=== PATIENT | female | born 1965 | race Caucasian/White ===

== ENCOUNTER 2024-10-15 06:56 | Emergency (ER) | payer OTHER, SELFPAY ==
[2024-10-15 07:12] VITALS: BP 148/82; PULSE 114; RESP 19; TEMP 36.6; O2SAT 97; BMI 29.5
--- OUTSIDE RECORDS SUMMARY | 2024-10-15 07:31 | XMS_ITS | Encounter Summary ---
Author Organization [facility] Address [address] [place] [address] Care Team Providers Care Sheep Or Calf Grader Name Role Phone Adrian Orr MD Primary Care Provider [phone] Reason for Visit * Reason Comments Other Was exposed to Covid and wants a test Encounter Details Date Type Department Care Team ([facility] Contact Info) Description 09/20/2024 1:30 PM EST Office Visit [facility] [place] [address] [place] [address] Gregorio Lakhani MD [address] [place] [address] Caterina Bro, BLEMISH REMOVER [address] [place] [address] COVID-19 (Primary Dx); Exposure to COVID-19 virus; Acute cough Social History Tobacco Use Types Packs/Day Years Used Date Smoking Tobacco: Some Days Cigarettes Smokeless Tobacco: Never Sex and Gender Information Value Date Recorded Sex Assigned at Female 06/23/2024 7:56 AM EDT Gender Identity Female 06/23/2024 7:56 AM EDT Sexual Orientation Not on file documented as of this encounter Last Filed Vital Signs Vital Sign Reading Time Taken Comments Blood Pressure 129/83 09/20/2024 1:18 PM EST Pulse 80 09/20/2024 1:18 PM EST Temperature 37.2 ??C (99 ??F) 09/20/2024 1:18 PM EST Respiratory Rate - - Oxygen Saturation 95% 09/20/2024 1:18 PM EST Inhaled Oxygen Concentration - - Weight 81.6 kg (180 lb) 09/20/2024 1:18 PM EST Height 162.6 cm (5' 4 ) 09/20/2024 1:18 PM EST Body Mass Index 30.9 09/20/2024 1:18 PM EST documented in this encounter Progress Notes * Caterina Bro, BLEMISH REMOVER - 09/20/2024 1:38 PM EST Assessment & Plan & Data Synthesis Sheryl Doll was seen today for other. Diagnoses and all orders for this visit: COVID-19 - benzonatate (TESSALON) 100 MG capsule; Take 2 capsules (200 mg total) by mouth 3 (three) times a day as needed for cough. Exposure to COVID-19 virus - POCT Rapid COVID-19 Antigen (FDA EUA) Acute cough - benzonatate (TESSALON) 100 MG capsule; Take 2 capsules (200 mg total) by mouth 3 (three) times a day as needed for cough. Medical Decision Making: Patient presents with COVID. POC COVID-positive in clinic today. We discussed the pathophysiology and how can take anywhere between 5-8 days for symptoms to resolve or show signs of improvement. The nonuse of antibiotics was discussed. Discussed contagiousness, contagious until fever free for 24 hours without fevers and medication. Low-grade fever here in clinic today. Benzonatate for symptomaticrelief. Allergies reviewed. Side effects discussed. Any drug interactions discussed. We discussed heavy rest including quarantining oneself to prevent spread, heavy fluids and to go to ED immediatelywith any difficulty getting out of bed, worsening fever or difficulty breathing. I considered mastoiditis, pneumonia, GABHS, sinusitis, WELFARE PROJECT MANAGER, retropharyngeal abscess, meningitis, otitis media, orbital cellultis and other bacterial infxs but the hx, exam & data did not support the diagnoses. The pt/family was advised that some diseases present atypically and the patient was given explicit discharge instructions. Communication barriers and lifestyle preferences were addressed with the patient. The care plan including medications and self-management goals were reviewed to the best of the patient's ability. Allquestions and concerns were answered. Patient and/or family verbalized understanding of the plan ofcare. Subjective History of present illness: Sheryl Elizalde is a 59 y.o. female Chief Complaint: Sore throat, cough Duration: today Severity: moderate has tried OTC medications. Presents for sore throat and cough since today. Reports COVID exposure 3 days ago. Denies any history of asthma, COPD. Current tobacco smoker. No OTC meds. Denies any other systemic symptoms. Denies f/c, ear pain, rhinorrhea, cp, sob, dyspnea, wheezing, N/V/D, fatigue, FLORES, change in vision, abd px,loss of taste or smell, or sinus pain. Denies any known exposure to Strep/Flu. Denies any recent illness or ABX use. I have reviewed the patients medications, allergies, past medical history, social history and family history as documented. Past Medical History: Diagnosis Date ??? Asthma ??? GERD (gastroesophageal reflux disease) ??? Hypertension ??? PTSD (post-traumatic stress disorder) ??? Type 2 diabetes mellitus (HCC) History reviewed. No pertinent surgical history. Social History Tobacco Use ??? Smoking status: Some Days Types: Cigarettes ??? Smokeless tobacco: Never Vaping Use ??? Vaping status: Never Used Substance Use Topics ??? Drug use: Never History reviewed. No pertinent family history. Review of Systems: Constitutional: has had no subjective fever, chills, malaise ENT: has had sore throat, no ear pain or sinus congestion Respiratory: has had cough, no shortness of breath Gastrointestinal: Denies abdominal pain. Denies nausea or vomiting. Neurologic: has had headache Musculoskeletal: has had muscle aches. Objective Vitals: 09/20/24 1318 BP: 129/83 Pulse: 80 Temp: 99 ??F (37.2 ??C) SpO2: 95% Weight: 81.6 kg (180 lb) Height: 1.626 m (5' 4 ) Examination: General: ill appearing but no acute distress . Eyes: Non-icteric sclera. Mild bilateral conjunctival injection without discharge Head: normocephalic, atraumatic. ENT: Oropharynx without tonsillar enlargement, posterior pharynx without +PND, no peritonsillar abscess. Uvula midline rises on phonation. Normal voice , moist mucous membranes. No peritonsillar abscess. Normal voice. Ears Bilateral- Patient has effusions of the middle ear without erythema of the TM. Middle ear structures are normal in appearance. . Sinuses no tenderness. Lungs: Breath sounds equal bilaterally. No adventitious sounds audible.. Neck: No resistance to flexion. Heart: No murmurs, RRR Extremities. Moving all extremities, well perfused. Psychiatric: Affect and mood normal. Interactive and conversant. Alert and oriented. Skin: Warm and dry without visible rash. Lymphatic: No palpable lymphadenopathy. Non tender nodes. 09/20/24 Caterina Bro PA-C documented in this encounter Plan of Treatment Upcoming Encounters Date Type Department Care Team (Late st Contact Info) Description 11/12/2024 2:45 PM EST Procedure visit [facility] [address] [place] [phone] Payal Canseco PA-C [address] [place] [phone] 11/19/2024 2:45 PM EDT Procedure visit [facility] [address] Payal Canseco PA-C [address] [place], [place] [phone] documented as of this encounter Procedures Procedure Name Priority Date/Time Associated Diagnosis Comments POCT RAPID COVID-19 AG (FDA EUA) Routine 09/20/2024 1:27 PM EST Exposure to COVID-19 virus documented in this encounter Results * (ABNORMAL) POCT Rapid COVID-19 Antigen (FDA EUA) (09/20/2024 1:27 PM EST) Pathologist [facility] COVID-19 Rapid Antigen, POC (FDA EUA) Positive(A ) Result Comments: A Positive Result does not rule out bacterial infection or co-infection with other viruses. Clinical correlation advised. A Negative Result in symptomatic patients should be considered presumptive and needs confirmation by PCR. Kit Lot Number [id number] Veterinary X Ray Operator Pass Pass Swab, Nasal Specimen from nose / Unknown 09/20/2024 1:27 PM EST Caterina Garcia Jahairacaryn BLEMISH REMOVER POINT OF CARE TEST ORDERABLES documented in this encounter Visit Diagnoses Diagnosis COVID-19- Primary Exposure to COVID-19 virus Acute cough documented in this encounter Care Teams Sheep Or Calf Grader Relationship Specialty Start Date End Date Adrian Orr MD [place] [address] PCP - General 08/18/20 documented as of this encounter
--- OUTSIDE RECORDS SUMMARY | 2024-10-15 07:31 | XMS_ITS | Clinical Summary ---
Author Organization [facility] Address [address] [place] [address] Care Team Providers Care Intelligence Group Supervisor Name Role Phone Adrian Orr MD Primary Care Provider Unavail able Allergies No known active allergies Medications Medication Sig Dispensed Refills Start Date End Date Status atenolol (TENORMIN) tablet 50 mg Take 100 mg by mouth daily. 0 Active losartan (COZAAR) tablet 25 mg Take 25 mg by mouth daily. 0 Active metFORMIN (GLUCOPHAGE) tablet 500 mg Take 1,000 mg by mouth 2 (two) times a day with meals. 0 Active albuterol (PROAIR HFA) 108 (90 BASE) MCG/ACT inhaler Inhale 2 puffs into the lungs every 6 (six) hours as needed for wheezing. 0 Active hydrocortisone (WESTCORT) 0.2 % cream APPLY TO AFFECTED AREA TOPICALLY EVERY DAY 1 05/07/2017 Active clobetasol (TEMOVATE) 0.05 % ointment Apply pea sized amount to perineum twice a day 0 06/10/2017 Active atorvastatin (LIPITOR) tablet 10 mg TAKE 1 TABLET BY ORAL ROUTE EVERY DAY 3 06/13/2017 Active omeprazole (PRILOSEC) 40 MG capsule *06/21*8 TAKE 1 CAPSULE TWICE A DAY 3 06/21/2017 Active ASPIRIN LOW DOSE 81 MG EC tablet TAKE 1 TABLET BY MOUTH EVERY DAY 3 08/11/2017 Active Cholecalciferol (VITAMIN D) 2000 UNITS tablet Take 2,000 Units by mouth daily. 0 Active ONETOUCH DELICA LANCETS FINE MISC USE DIRECTED EVERY DAY 1 08/30/2017 Active Acetaminophen-Cod eine (TYLENOL/CODEINE #3) 300-30 MG per tablet Take 1-2 tablets by mouth every 4 (four) hours as needed for pain. 29 tablet 0 09/23/2018 Active glipiZIDE (GLUCOTROL) tablet 5 mg Take 5 mg by mouth 2 (two) times a day before breakfast and dinner. 0 Active CHANTIX CONTINUING MONTH FAWAD 1 MG tablet TK 1 T PO BID 2 01/10/2019 Active BREO ELLIPTA 200-25 MCG/INH AEPB INHALE 1 PUFF BY INHALATION ROUTE EVERY DAY AT THE SAME TIME EACH DAY 3 03/19/2019 Active gabapentin (NEURONTIN) 300 MG capsule Take 300 mg by mouth. QAM and QHS 2 02/16/2019 Active Magnesium 400 MG CAPS Take 1 tablet by mouth daily. 30 capsule 3 05/20/2019 Active hydroCHLOROthiazi de (HYDRODIURIL) tablet 25 mg Take 25 mg by mouth daily. 3 05/14/2019 Active ACCU-CHEK GUIDE test strip USE TO TEST BLOOD SUGAR 3 TIMES DAILY 2 06/17/2019 Active ibuprofen (ADVIL,MOTRIN) 600 MG tablet TAKE 1 TABLET BY MOUTH EVERY 4 TO 6 HOURS NEEDED FOR PAIN 0 05/28/2019 Active acetaminophen (TYLENOL) 325 MG tablet Take 1 tablet by mouth every 6 (six) hours as needed. 0 Active Continuous Blood Gluc Sensor (FREESTYLE FRNAKY 14 DAY SENSOR) MISC CHANGE EVERY 2 WEEKS DIRECTED 0 01/08/2020 Active JARDIANCE 25 MG TABS TAKE 1 TABLET BY MOUTH EVERY DAY IN THE MORNING 0 02/17/2020 Active Gabapentin Enacarbil ER 300 MG TBCR Take 600 mg by mouth. 0 Active Insulin Infusion Pump (ACCU-CHEK COMBO) KIT as directed subcutaneously daily 0 Active tiZANidine (ZANAFLEX) 2 MG tabletIndications :Facet arthritis of lumbar region,Left wrist tendonitis,Lumbar foraminal stenosis TAKE 1 TABLET BY MOUTH EVERY 8 HOURS NEEDED 60 tablet 2 11/28/2020 Active chlorhexidine (PERIDEX) 0.12 % solution RINSE MOUTH OUT 3 TIMES A DAY 0 03/28/2021 Active cyclobenzaprine (FLEXERIL) 10 MG tablet Take 10 mg by mouth 3 (three) times a day as needed. 0 04/04/2021 Active triazolam (HALCION) 0.125 MG tablet TAKE 3 TABS BY MOUTH 1 HOUR PRIOR TO APPT AND BRIN 4TH TAB TO APPOINTMENT 0 03/28/2021 Active sertraline (ZOLOFT) 50 MG tablet Take 50 mg by mouth. 0 12/28/2021 Acti ve Active Problems Problem Noted Date Diagnosed Date Controlled type 2 diabetes m ellitus without complication, without long-term current use of insulin 08/13/2019 Essential hypertension 08/13/2019 Hypercholesterolemia 08/13/2019 Plantar fasciitis, bilateral 05/26/2019 B12 deficiency 05/26/2019 Osteoarthritis of multiple joints 03/25/2019 Anserine bursitis 03/25/2019 Trochanteric bursitis 03/25/2019 Muscle cramping 03/25/2019 Pain in joint, multiple sites 03/25/2019 Hypomagnesemia 03/25/2019 B12 deficiency 03/25/2019 Lumbar foraminal stenosis 09/03/2017 Facet arthritis of lumbar region 09/03/2017 Chronic bilateral low back pain with left-sided sciatica 09/03/2017 Left wrist pain 04/11/2017 Left wrist ECU tendonitis 04/11/2017 CTS (carpal tunnel syndrome) 05/24/2015 Chest pain Overview: admit [facility] [place] ruled out History of nuclear stress test Overview: nl perfusion nl lv ef Resolved Problems Problem Noted Date Diagnosed Date Resolved Date Back pain 09/02/2017 10/12/2018 Immunizations Name Administration Dates Next Due Covid-19 (Pfizer) Dilution Required 06/06/2021,0 10/24/2020,09/27/2020 Family History Medical History Relation Name Comments Coronary artery disease Father Diabetes Father Hypertension Father Arthritis Mother Diabetes Mother Hypertension Mother Stroke Mother BRCA 1/2 Neg Hx Breast cancer Neg Hx Cancer Neg Hx Colon cancer Neg Hx Endometrial cancer Neg Hx Ovarian cancer Neg Hx Relation Name Status Comments Father Mother Social History Tobacco Use Types Packs/Day Years Used Date Smoking Tobacco: Former Cigarettes 0.3 Smokeless Tobacco: Never Quit: 10/2007 Alcohol Use Standard Drinks/Week Comments No 0 (1 standard drink = 0.6 oz pur e alcohol) Sex and Gender Information Value Date Recorded Sex Assigned at Female 09/21/2018 1:32 PM EST Gender Identity Female 01/07/2022 2:17 PM EDT Sexual Orientation Not on file Job Start Date Occupation Industry Not on file Not on file Not on file Last Filed Vital Signs Vital Sign Reading Time Taken Comments Blood Pressure 122/73 10/12/2020 1:21 PM EST Pulse 70 10/12/2020 1:21 PM EST Temperature 36.3 ??C (97.3 ??F) 10/12/2020 1:21 PM ES T Respiratory Rate 18 09/21/2019 9:57 AM EST Oxygen Saturation 97% 08/13/2019 1:47 PM EST Inhaled Oxygen Concentration - - Weight 89.8 kg (198 lb) 01/07/2022 11:14 AM EDT Height 162.6 cm (5' 4 ) 01/07/2022 11:14 AM EDT Body Mass Index 33.99 01/07/2022 11:14 AM EDT Plan of Treatment Health Maintenance Due Date Last Done Comments Hepatitis C Screening 1965 Pneumococcal Vaccine (1 of 2 - PCV) 1970 Depression Screening 1976 Diabetes: Eye Exam (No Retinopathy) 1982 Diabetes: Foot Exam 1982 Preventative Health Evaluation 1982 DTap / Tdap / Td (1 - Tdap) 1983 Cervical Cancer Screening (Pap Smear) 1985 Colon Cancer Screening (Colonoscopy) 2009 Shingrix-Zoster Vaccine (1 of 2) 2014 Breast Cancer Screening (Mammogram) 06/22/2016 06/22/2014 Diabetes: Microalbumin Test 08/30/2016 08/30/2015 Hemoglobin A1C Due 02/12/2020 08/13/2019, 0 09/12/2018, 04/27/2016, Additional history exists BMI Counseling 08/13/2020 08/13/2019 COVID-19 Vaccine ( season) 2024 06/06/2021, 10/24/2020, 09/27/2020 Influenza Vaccine (#1) 2024 RSV Adult > 60+ Yrs or (1 - 1-dose 75+ series) 2039 Hepatitis B Vaccines Aged Out No long er eligible based on patient's age to complete this topic RSV Ped < 20 months Aged Out No longe r eligible based on patient's age to complete this topic Advance Directives For more information, please contact: [phone] Documents on File Type Date Recorded Patient Treating And Pumping Supervisor Expl anation Advance Directive and Living Will 04/05/2016 Latest Code Status on File Code Status Date Activated Date Inactivated Comments Full Code 04/27/2016 7:13 AM 04/27/2016 9:06 PM This code status was ascertained in the following way: discussion with patient. Care Teams Intelligence Group Supervisor Relationship Specialty Start Date End Date Adrian Orr MD PCP - General Internal Medicine 09/27/20
--- OUTSIDE RECORDS SUMMARY | 2024-10-15 07:31 | XMS_ITS ---
Author Organization [employer] [facility] Address [address] [address] Care Team Providers Care Actor Understudy Name Role Phone CRISTINA LUCERO Primary Care Provider KEENAN Escamilla Unavailable [phone] REASON FOR VISIT Annual INSTRUCTIONAL PARAPROFESSIONAL Physical Encounters Encounter Location Date Provider Diagnosis [facility] [address] [address] 10/01/2024 KEENAN BLEDSOE Encounter for gynecological examination (general) (routine) without abnormal findings Z01.419 ; Encounter for screening mammogram for malignant neoplasm of breast Z12.31 and Encounter for screening for infections with a predominantly sexual mode of transmission Z11.3 Assessments Encounter Date Diagnosis (ICD Code) Assessment Notes Treatment Notes Treatment Clinical Notes Section Notes 10/01/2024 Encounter for gynecological examination (general) (routine) without abnormal findings (ICD-10 - Z01.419) During the visit, the following areas of concern were addressed: Discussed cervical cancer screening with either cytology alone every 3 years or high risk HPV co-testing every 5 years as per ASCCP guidelines. Advised continued annual pelvic exams. Patient encouraged to increase her level of exercise. SBE technique encouraged/tau ght. Patient reminded when annual mammogram is due. Patient encouraged to keep colon screening up to date. 10/01/2024 Encounter for screening mammogram for malignant neoplasm of breast (ICD-10 - Z12.31) 10/01/2024 Encounter for screening for infections with a predominantly sexual mode of transmission (ICD-10 - Z11.3) Plan Of Treatment Treatment Notes Assessment Notes Encounter for gynecological examination (general) (routine) without abnormal findings During the visit, the following areas of concern were addressed: Discussed cervical cancer screening with either cytology alone every 3 years or high risk HPV co-testing every 5 years as per ASCCP guidelines. Advised continued annual pelvic exams. Patient encouraged to increase her level of exercise. SBE technique encouraged/taught. Patient reminded when annual mammogram is due. Patient encouraged to keep colon screening up to date. Pending Test Test Name Order Date MM Digital Screening Mammogram 3D 2024 Next Appt Details Follow Up: 1 Year, Reason: Y early Rabies Inspector Exam Provider Name:KEENANTriny Luong, 10/22/2024 01:30:00 PM, [address], [address], [place], [address], Progress Notes * NEO BAIRDOB:[birth year] (59 yo F)Acc No.[id number]:10/01/2024 PROGRESS NOTES Patient:?NEO BAIRD Provider:?KEENAN BLEDSOE MD :1965???Age:59 Y???Sex:Female D ate:10/01/2024 Address:[address] [place], [place] [id number] Pcp:CRISTINA LUCERO Subjective: * Chief Complaints: * ???1. Annual INSTRUCTIONAL PARAPROFESSIONAL Physical. 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 ? She has been in state of good health since her last exam. She has the following concerns: none* ? She has received the [employer] Covid-19 vaccine. ? Relationship status: *single. She is not sexually active for years. Sexual partner(s): male. She does not wish to have STI testing. ? She does *not report vaginal dryness. She does not have hot flashes/night sweats. ? The patient has never had an abnormal pap smear. Her most recent pap smear was 09/29/20 - NIL, neg HR HPV. Next due for cotesting in 2025. ? She has not been diagnosed with breast cancer. She does have a family history of breast cancer - maternal cousin at age 59. Her last mammogram was 06/[address] [facility]. ? She does *not have a family history of colon cancer. She a has not had a colonoscopy. She did Cologard in 2018. Three years ago she reported she was anemic, and her doctor was concerned about an intestinal source and recommended a colonoscopy. She did not go through with it. *She hasn't yet repeated her Cologard. ? The patient does *not exercise. * ROS:?Annual Rabies Inspector Exam ROS:?Bowel habit changes?denies.?Bladder symptoms?denies.?Vaginal discharge, unusual?denies.?Vaginal itch or odor?denies.?weight or appetite changes?denies.?Chest pains, SOB?denies.?depression?denies.?Breast:?Denies?Breast lump.?Denies?Nipple discharge.?Hematology:?Denies?Swollen glands.?Skin:?Patient denies?changing moles.?Psychiatric:?Denies?Anxiety.? * Medical History:? Objective: * Vitals:? * Examination: ???General Examination: ?GENERAL APPEARANCE:?in no acute distress, well developed, well nourished, energy analyst present in room.?HEAD:?normocephalic, atraumatic.?NECK/THYROID:?neck supple, full range of motion, thyroid normal.?LYMPH NODES:?no axillary or supraclavicular adenopathy.?SKIN:? normal, good turgor, no rashes, no suspicious lesions.?BREASTS:? normal, no dimpling, no discharge, no drainage, no masses palpable bilaterally, nontender.?ABDOMEN:? soft, non-tender, non distended without masses or hepatosplenomegay.?RECTAL:? normal tone, no masses palpable.?BACK:? no costovertebral angle tenderness.?FEMALE GENITOURINARY:?Vulva without lesions or masses, vagina pink without abnormal discharge, lesions or masses, cervix appears normal and is not tender to palpation, uterus is normal size, mobile, nontender and anteverted, ovaries are not palpable.?NEUROLOGIC:? alert and oriented, gait normal.?PSYCH:? alert, oriented, cognitive function intact, cooperative with exam, good eye contact, mood/affect full range, speech clear.? Assessment: * Assessment: 1.?Encounter for gynecologic al examination (general) (routine) without abnormal findings - Z01.419 (Primary)???2.?Encounter for screening mammogram for malignant neoplasm of breast - Z12.31???3.?Encounter for screening for infections with a predominantly sexual mode of transmission - Z11.3??? Plan: * Treatment: 2.?Encounter for screening m ammogram for malignant neoplasm of breast?Imaging: MM Digital Screening Mammogram 3D * Follow Up:?1 Year (Reason: Y early Rabies Inspector Exam) * Images: Billing Information: * Visit Code:? 41910 Preventive Care Est Pt. Age 40-64. * Procedure Codes:? 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 She has been in state of good health since her last exam. She has the following concerns: none* She has received the [employer] Covid-19 vaccine. Relationship status: *single. She is not sexually active for years. Sexual partner(s): male. She does not wish to have STI testing. She does *not report vaginal dryness. She does not have hot flashes/night sweats. The patient has never had an abnormal pap smear. Her most recent pap smear was 09/29/20 - NIL, neg HR HPV. Next due for cotesting in 2025. She has not been diagnosed with breast cancer. She does have a family history of breast cancer - maternal cousin at age 59. Her last mammogram was 06/[address] [facility]. She does *not have a family history of colon cancer. She a has not had a colonoscopy. She did Cologard in 2018. Three years ago she reported she was anemic, and her doctor was concerned about an intestinal source and recommended a colonoscopy. She did not go through with it. *She hasn't yet repeated her Cologard. The patient does *not exercise. Examination Category Sub-Category Detail Notes Category Not es General Examination GENERAL APPEARANCE: in no ac [place] distress, well developed, well nourished, energy analyst present in room HEAD: normocephalic, atrau matic NECK/THYROID: neck supple, full ra nge of motion, thyroid normal ABDOMEN: soft, non-tender, no n distended without masses or hepatosplenomegay NEUROLOGIC: alert and oriented, gait normal SKIN: normal, good turgor, no rashes, no suspicious lesions BACK: no costovertebral an gle tenderness BREASTS: normal, no dimpling, no discharge, no drainage, no masses palpable bilaterally, nontender LYMPH NODES: no axillary or supra clavicular adenopathy RECTAL: normal tone, no mass es palpable PSYCH: alert, oriented, cog nitive function intact, cooperative with exam, good eye contact, mood/affect full range, speech clear FEMALE GENITOURINARY: Vulva without lesi ons or masses, vagina pink without abnormal discharge, lesions or masses, cervix appears normal and is not tender to palpation, uterus is normal size, mobile, nontender and anteverted, ovaries are not palpable
--- OUTSIDE RECORDS SUMMARY | 2024-10-15 07:31 | XMS_ITS | Patient Health Record ---
Author Organization [facility] Address [address] [place] [address] Care Team Providers Care Head Cager Name Role Phone CRISTINA LUCERO Primary Care Provider KEENAN Escamilla Unavailable [phone] Allergies No Known Allergies Reason For Referral No Information Medications Medication SIG (Take, Route, Frequency, Duration) Notes Start Date End Date Status tiZANidine HCl 2 MG 1-2 Tablets Orally Q HS PRN Active Atenolol 100 MG 1 tablet Orally Once a day Active Meloxicam 15 MG 1 tablet Orally Once a day Active Omeprazole 40 mg 1 tablet 30 minutes before morning meal Orally BID Active Gabapentin 3200 MG 1 capsule Orally BID Active Breo Ellipta 200-25 MCG/INH 1 puff Inhal ation Once a day Active Atorvastatin Calcium 10 MG 1 tablet Oral ly Once a day Active Albuterol Sulfate HFA 108 (9 0 Base) MCG/ACT 1-2 puff Inhalation every 4 hrs Active Clobetasol Propionate 0.05 % 1 applicati on to affected area as needed Externally twice weekly Active glipiZIDE 5 MG 1 tablet 30 minutes before breakfast Orally Once a day Active Glucophage 500 MG 2 Tablets Orally BID Active Losartan Potassium 25 MG 1 tablet Orally Once a day Active Vitamin B 12 1000 MCG 1 tablet Orally On ce a day Active Jardiance 100 MG 1 tablet Orally Once a day Active Magnesium 500 MG 1 capsule with a hunter l Orally BID Active hydroCHLOROthiazide 25 MG 1 tablet in th e morning Orally Once a day Active Vitamin D 50 MCG (1999 UT) 1 tablet Oral ly Once a day Active Social History Tobacco Use: Social History Observation Description Date Details (start date - stop date) Former Smoker NA - NA Tobacco Use/Smoking Question Answer Notes Are you a former smoker How long has it been since you last smoked? > 10 years Alcohol Screen (Audit-C) Question Answer Notes Did you have a drink contain ing alcohol in the past year? Yes How often did you have a dri nk containing alcohol in the past year? Monthly or less (1 point) How many drinks did you have on a typical day when you were drinking in the past year? 1 or 2 drinks (0 point) How often did you have 6 or more drinks on one occasion in the past year? Never (0 point) Points 1 Interpretation Negative Sexual History Question Answer Notes Had sex in the past 12 months (vaginal, oral, or anal)? No Have you ever had a Sexually transmitted disease ? 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 Vital Signs Temperature 97.1 degrees Fahrenheit 06/10/2024 Blood pressure diastolic 86 mm Hg 06/10/2024 Height 64 in 06/10/2024 Blood pressure systolic 124 mm Hg 06/10/2024 Weight 189 lbs 06/10/2024 BMI 32.44 kg/m2 06/10/2024 Encounters Encounter Location Date Provider Diagnosis [address] [address] 06/10/2024 KEENAN BLEDSOE Unspecified contact dermatitis due to drugs in contact with skin L25.[address] [address] 11/03/2023 KEENAN BLEDSOE [address] [address] 09/09/2024 KEENAN BLEDSOE Assessments Encounter Date Diagnosis (ICD Code) Assessment Notes Treatment Notes Treatment Clinical Notes Section Notes 06/10/2024 Unspecified contact dermatitis due to drugs in contact with skin (ICD-10 - L25.1) Stop current medication. Use cool compresses, take an antihistamine. Use baby diaper cream as needed for emolient. Plan Of Treatment Pending Test Test Name Order Date MM Digital Screening Mammogram 3D 2020 MM Digital Screening Mammogram 3D 2021 MM Digital Screening Mammogram 3D 2022 MM Digital Screening Mammogram 3D 2023 Next Appt Details Provider Name:KEENAN Luong, 10/22/2024 01:30:00 PM, [address] [facility], [address], [place], [address], Insurance Providers Payer Name Payer Address Payer Phone Subscriber Number Group Number Insured Name Patient Relationship to Insured Coverage Start Date Coverage End Date [employer] [address] [place] [address] [phone] [id number] NEO BAIRD Self - patient is the insured Medical (General) History Medical History History ICD Code Essential (primary) hypertension I10 Type 2 diabetes mellitus without complic ations E11.9 Other asthma J45.998 Pure hypercholesterolemia, unspecified E 78.00 Gastro-esophageal reflux disease without esophagitis K21.9 Pruritus vulvae L29.2 Other psoriasis L40.8 Surgical History Surgery Date(Month/Year) Tonsilectomy 1979 D+C Laparoscopy/Hysteroscopy 1989 Lap Choley 1990 6 x Cystoscopy and ESWL 2012 Carpal Tunnel Release Right 2016 Ezio Bunionectomy 2016 Tendon Release 2019 Trigger finger release/cyst removal (rig ht middle finger) 05/2020
--- OUTSIDE RECORDS SUMMARY | 2024-10-15 07:31 | XMS_ITS | Encounter Summary ---
Author Organization [facility] Address [address] [place] [address] Care Team Providers Care It Communications Specialist Name Role Phone Adrian Orr MD Primary Care Provider [phone] Encounter Details Date Type Department Care Team (Latest Contact Info) Description 02/24/2022 4:14 PM EDT Hospital Encounter [facility] [address] [place] [phone] Aidee Adler APRN Needs valid address Knee injury, initial encounter Social History Tobacco Use Types Packs/Day Years Used Date Smoking Tobacco: Some Days Cigarettes Smokeless Tobacco: Never Sex and Gender Information Value Date Recorded Sex Assigned at Female 06/23/2024 7:56 AM EDT Gender Identity Female 06/23/2024 7:56 AM EDT Sexual Orientation Not on file COVID-19 Exposure Response Date Recorded In the last 10 days, have yo u been in contact with someone who was confirmed or suspected to have Coronavirus/COVID-19? Unable to assess 06/17/2022 3:43 PM EDT documented as of this encounter Plan of Treatment Upcoming Encounters Date Type Department Care Team (Late st Contact Info) Description 11/12/2024 2:45 PM EST Procedure visit [facility] [address] [place] [address] Payal Canseco PA-C [address] [place] [phone] 11/19/2024 2:45 PM EDT Procedure visit [facility] [address] [place] [address] Payal Canseco PA-C [address] [place] [address] documented as of this encounter Procedures Procedure Name Priority Date/Time Associated Diagnosis Comments XR KNEE 3 VIEWS-RIGHT Routine 02/24/2022 4:24 PM EDT Knee injury, initial encounter documented in this encounter Results * XR Knee 3 views-Right (02/24/2022 4:24 PM EDT) Anatomical Region Laterality Modality Knee Computed Radiogr aphy 02/24/2022 4:26 PM EDT Addenda Addendum by Chai Hightower MD on 02/26/2022 8:23 AM EDT Please read the impression as below. No acute fracture or dislocation. Mild right tibiofemoral ??and moderate patellofemoral osteoarthrosis. Moderate tricompartment osteophyte formation. Impressions 02/24/2022 4:27 PM EDT No acute fracture or dislocation. Mild bilateral knee and moderate patellofemoral osteoarthrosis. Moderate tricompartment osteophyte formation. Narrative 02/24/2022 4:27 PM EDT TECHNIQUE: 2 views of the right knee. COMPARISON: None available. FINDINGS: Moderate tricompartment osteophyte formation. No acute fracture or dislocation identified. Mild narrowing of the lateral tibiofemoral joint space. Moderate narrowing of the patellofemoral joint space. Small suprapatellar joint effusion. Procedure Note Chai Hightower MD - 02/24/2022 TECHNIQUE: 2 views of the right knee. COMPARISON: None available. FINDINGS: Moderate tricompartment osteophyte formation. No acute fracture or dislocation identified. Mild narrowing of the lateraltibiofemoral joint space. Moderate narrowing of the patellofemoral jointspace. Small suprapatellar joint effusion. IMPRESSION: No acute fracture or dislocation. Mild bilateral knee and moderate patellofemoral osteoarthrosis. Moderate tricompartment osteophyte formation. Aidee Vitor PLANETARIUM TECHNICIAN IMG DIAGNOSTIC IMAGI NG ORDERABLES documented in this encounter Visit Diagnoses Diagnosis Knee injury, initial encounter documented in this encounter Care Teams It Communications Specialist Relationship Specialty Start Date End Date Adrian Orr MD [place] [address] PCP - General 08/18/20 documented as of this encounter
--- OUTSIDE RECORDS SUMMARY | 2024-10-15 07:31 | XMS_ITS | Encounter Summary ---
Author Organization [facility] Address [address] [place] [address] Care Team Providers Care Roof Bolter Name Role Phone Adrian Orr MD Primary Care Provider [phone] Encounter Details Date Type Department Care Team (Late st Contact Info) Description 09/20/2024 Scanned Document [facility] [address] [facility] [address] [place] [phone] Provider, Generic Social History Tobacco Use Types Packs/Day Years Used Date Smoking Tobacco: Some Days Cigarettes Smokeless Tobacco: Never Sex and Gender Information Value Date Recorded Sex Assigned at Female 06/23/2024 7:56 AM EDT Gender Identity Female 06/23/2024 7:56 AM EDT Sexual Orientation Not on file documented as of this encounter Plan of Treatment Upcoming Encounters Date Type Department Care Team (Late st Contact Info) Description 11/12/2024 2:45 PM EST Procedure visit [facility] [address] [place] [phone] Payal Canseco PA-C [address] [place] [phone] 11/19/2024 2:45 PM EDT Procedure visit [facility] [address] [place] [phone] Payal Canseco PA-C [address] [place] [phone] documented as of this encounter Visit Diagnoses Not on filedocumented in this encounter Care Teams Roof Bolter Relationship Specialty Start Date End Date Adrian Orr MD [place]iology [place] [address] PCP - General 08/18/20 documented as of this encounter
--- OUTSIDE RECORDS SUMMARY | 2024-10-15 07:31 | XMS_ITS ---
Author Organization [facility] Address [address] [place] [phone] Care Team Providers Care Power Distribution Engineer Name Role Phone CRISTINA LUCERO Primary Care Provider KEENAN Escamilla Unavailable [phone] Allergies No Known Allergies REASON FOR VISIT VAGINAL PAIN Medications Medication SIG (Take, Route, Frequency, Duration) Notes Start Date End Date Status Gabapentin 3200 MG 1 capsule Orally BID Active Breo Ellipta 200-25 MCG/INH 1 puff Inhal ation Once a day Active Atorvastatin Calcium 10 MG 1 tablet Oral ly Once a day Active Albuterol Sulfate HFA 108 (9 0 Base) MCG/ACT 1-2 puff Inhalation every 4 hrs Active glipiZIDE 5 MG 1 tablet 30 minutes before breakfast Orally Once a day Active Atenolol 100 MG 1 tablet Orally Once a day Active Clobetasol Propionate 0.05 % 1 applicati on to affected area as needed Externally twice weekly Active Losartan Potassium 25 MG 1 tablet Orally Once a day Active Jardiance 100 MG 1 tablet Orally Once a day Active hydroCHLOROthiazide 25 MG 1 tablet in th e morning Orally Once a day Active Meloxicam 15 MG 1 tablet Orally Once a day Active Glucophage 500 MG 2 Tablets Orally BID Active Vitamin B 12 1000 MCG 1 tablet Orally On ce a day Active Magnesium 500 MG 1 capsule with a hunter l Orally BID Active Vitamin D 50 MCG (2000 UT) 1 tablet Oral ly Once a day Active Omeprazole 40 mg 1 tablet 30 minutes before morning meal Orally BID Active tiZANidine HCl 2 MG 1-2 Tablets Orally Q HS PRN Active Social History Tobacco Use: Social History [...] Problem Status W/U Status Risk Notes Problem Leukoplakia of vulva (192554623) 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 Vital Signs Temperature 97.1 degrees Fahrenheit 06/10/20 24 Blood pressure systolic 124 mm Hg 06/10/20 24 Blood pressure diastolic 86 mm Hg 024 Height 64 in 06/10/2024 Weight 189 lbs 06/10/2024 BMI 32.44 kg/m2 06/10/2024 Encounters Encounter Location Date Provider Diagnosis [facility] [address] [place] [address] 06/10/2024 KEENAN BLEDSOE Unspecified contact dermatitis due to drugs in contact with skin L25.1 Assessments Encounter Date Diagnosis (ICD Code) Assessment Notes Treatment Notes Treatment Clinical Notes Section Notes 06/10/2024 Unspecified contact dermatitis due to drugs in contact with skin (ICD-10 - L25.1) Stop current medication. Use cool compresses, take an antihistamine. Use baby diaper cream as needed for emolient. Plan Of Treatment Treatment Notes Assessment Notes Unspecified contact dermatit is due to drugs in contact with skin Stop current medication. Use cool compresses, take an antihistamine. Use baby diaper cream as needed for emolient. Next Appt Details Follow Up: prn, Reason: Provider Name:KEENAN Luong, 10/22/2024 01:30:00 PM, [address], [address], [place], [address], Progress Notes * NEO BAIRD:08/24 (58 yo F)Acc No.[id number]:06/10/2024 PROGRESS NOTES Patient:?NEO BAIRD Provider:?KEENAN BLEDSOE MD :1965???Age:58 Y???Sex:Female D ate:06/10/2024 Address:[address] [place] [address], [facility] Pcp:CRISTINA LUCERO Subjective: * Chief Complaints: * ???VAGINAL PAIN * HPI: ???JAVA TECH (Problems):?58 year old female presents with c/o Vulvar Lesions/Itching/Pain:?Vulvar complaints:?itching, pain, swelling welts ?Date of onset:?06/04/2024 a few days after starting a cream prescribed by a field captain for her usual vulvar itching (?psoriasis). Cream is Vtama (tapinarof cream 1%) ?Symptoms reported:?itching, pain ?Severity of symptoms:?severe ?Aggravating factors:?driving, sitting, getting up to stand, wearing clothes ?Alleviating factors:?laying on her bed with nothing on ?Prior treatments:?none, and hasn't called the field captain * ROS:?General/Constitutional:?Denies?Chills.?Denies?Fever.?Hematology:?Denies?Swollen glands.?Women Only:?Patient denies?new sexual partners, wearing pads regularly, new soaps/detergents/fabric softeners.?Denies?Painful intercourse.?Denies?Vaginal discharge/itching.? * Medical History:? * Industrial Seamstress History:?/ Para?0/0.?Sexual activity?not currently sexually active.?Last Pap Smear:?09/29/2020 NIL, HRHPV NEG, 11/27/15, NIL, NEG HPV.?Mammogram:?06/2023- [employer], 06/14/22 Breast Tissue is Almost Entirely Fatty, 06/08/2021 Breast Tissue is Almost Entirely Fatty, 06/2019.?Abnormal Pap Smear:?no history of abnormal pap smears.? Control:?menopause.?Colonoscopy?[facility]olog[facility] 09/2017.? * OB History:?Total pregnancies?0.? * Surgical History:?Tonsilecto my 1979D+C Laparoscopy/Hysteroscopy 1989Lap Choley x Cystoscopy and ESWL 2012Carpal Tunnel Release Right 2016Bil Bunionectomy 2016Tendon Release 2019Trigger finger release/cyst removal (right middle finger) 05/2020 * Hospitalization/Major Diagno stic Procedure:?No Hospitalization History. * Family History:?Mother: dece ased, hypertension, type II diabetes, stroke.?Father: , type II diabetes, hypertension.?2 sister(s) . .? Sister - Laura - 09/16/46 - estranged since 2009 Sister - Ana - 07/30/54 - CVA, HTN, thyroid, meningioma; killed by a car while walking her dog, 11/2021 Maternal Cousin - Edith - breast cancer at about age 59 Maternal aunt - 06/2021, had multiple PEs in her mid 90's Denies family history of colon, uterine or ovarian cancers. * Social History:?Tobacco Use:?Tobacco Use/Smoking?Are you a?former smoker ?How long has it been since you last smoked??> 10 years ???Sexual History:?Sexual History?Had sex in the past 12 months (vaginal, oral, or anal)??No ?Have you ever had a Sexually transmitted disease??No ???Drugs/Alcohol:?Drugs?Have you used drugs other than those for medical reasons in the past 12 months??No ?Alcohol Screen (Audit-C)?Did you have a drink containing alcohol in the past year??Yes ?How often did you have a drink containing alcohol in the past year??Monthly or less (1 point) ?How many drinks did you have on a typical day when you were drinking in the past year??1 or 2 drinks (0 point) ?How often did you have 6 or more drinks on one occasion in the past year??Never (0 point) ?Points?1 ?Interpretation?Negative ???Miscellaneous:?Children: no. ?Domestic violence: no. ?Exercise: no. ?Home smoke detector use: yes, smoke detectors. ?Housing: owns a home. ?Living with: alone. ?Marital status: single. 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 ?Pets: none. ?Sexual abuse: no. ?Sexually active: no. ?Verbal abuse: no. * Medications:?TakingAtenolol 100 MG Tablet 1 tablet Orally Once a day hydroCHLOROthiazide 25 MG Tablet 1 tablet in the morning Orally Once a day Jardiance 100 MG Tablet 1 tablet Orally Once a day Losartan Potassium 25 MG Tablet 1 tablet Orally Once a day glipiZIDE 5 MG Tablet 1 tablet 30 minutes before breakfast Orally Once a day Albuterol Sulfate HFA 108 (90 Base) MCG/ACT Aerosol Solution 1-2 puff Inhalation every 4 hrs Atorvastatin Calcium 10 MG Tablet 1 tablet Orally Once a day Breo Ellipta 200-25 MCG/INH Aerosol Powder Breath Activated 1 puff Inhalation Once a day Gabapentin 3200 MG 1 capsule Orally BID tiZANidine HCl 2 MG Tablet 1-2 Tablets Orally QHS PRN Omeprazole 40 mg Tablet 1 tablet 30 minutes before morning meal Orally BID Meloxicam 15 MG Tablet 1 tablet Orally Once a day Vitamin D 50 MCG (1999) Tablet 1 tablet Orally Once a day Magnesium 500 MG Tablet 1 capsule with a meal Orally BID Vitamin B 12 1000 MCG 1 tablet Orally Once a day Glucophage 500 MG Tablet 2 Tablets Orally BID Clobetasol Propionate 0.05 % Cream 1 application to affected area as needed Externally twice weekly Medication List reviewed and reconciled with the patientTaking Atenolol 100 MG Tablet 1 tablet Orally Once a day Taking hydroCHLOROthiazide 25 MG Tablet 1 tablet in the morning Orally Once a day Taking Jardiance 100 MG Tablet 1 tablet Orally Once a day Taking Losartan Potassium 25 MG Tablet 1 tablet Orally Once a day Taking glipiZIDE 5 MG Tablet 1 tablet 30 minutes before breakfast Orally Once a day Taking Albuterol Sulfate HFA 108 (90 Base) MCG/ACT Aerosol Solution 1-2 puff Inhalation every 4 hrs Taking Atorvastatin Calcium 10 MG Tablet 1 tablet Orally Once a day Taking Breo Ellipta 200-25 MCG/INH Aerosol Powder Breath Activated 1 puff Inhalation Once a day Taking Gabapentin 3200 MG 1 capsule Orally BID Taking tiZANidine HCl 2 MG Tablet 1-2 Tablets Orally QHS PRN Taking Omeprazole 40 mg Tablet 1 tablet 30 minutes before morning meal Orally BID Taking Meloxicam 15 MG Tablet 1 tablet Orally Once a day Taking Vitamin D 50 MCG (1999 UT) Tablet 1 tablet Orally Once a day Taking Magnesium 500 MG Tablet 1 capsule with a meal Orally BID Taking Vitamin B 12 1000 MCG 1 tablet Orally Once a day Taking Glucophage 500 MG Tablet 2 Tablets Orally BID Taking Clobetasol Propionate 0.05 % Cream 1 application to affected area as needed Externally twice weekly Medication List reviewed and reconciled with the patient * Allergies:?N.K.D.A.no[Allerg ies Verified] Objective: * Vitals:?Ht: 64 in, Wt:189lbs , BMI:32.44Index, BP:124/86mm Hg, Temp:97.1F. * Examination: ???Genitourinary - Female: ?GENERAL APPEARANCE:? alert, oriented, no apparent distress, senior administrative services officer present in room.?ABDOMEN:? soft, non-tender, no mass.?EXTERNAL GENITALS:?angry erythema on labia majora and minora?with few excoriations, some scaling present?.?URETHRAL MEATUS:? normal.?VAGINA:? healthy pink mucosa without any lesions.?ANUS/PERINEUM:?angry erythema on perineum and perianal region?with few excoriations, some scaling present?.?CERVIX:? downward, normal appearing, no cervical movement tenderness.?UTERUS:? normal size, mobile, non tender.?OVARIES:? not palpable.? Assessment: * Assessment: 1.?Unspecified contact derma titis due to drugs in contact with skin - L25.1 (Primary)??? Plan: * Treatment: * Procedure Codes:? * Preventive Medicine:?Limit your exposure to pads or cotton fabrics that can hold moisture against the skin. Change underwear if they get damp. Wear nothing below the waist when going to bed at night. Use blowdryer on cool setting & apply baby diaper cream to follow to protect skin Stop current medication. Use cool compresses, take an antihistamine (like Claritin, Zyrtec, or Benadryl). Use baby diaper cream as needed for emolient. * Follow Up:?prn * Images: Billing Information: * Visit Code:? 26133 Office Visit, Est Pt., Level 3. * Procedure Codes:? * Sign off status: Completed true * Provider:?KEENAN BLEDSOE MD Date:?2023 Generated for Edie dyer/Remigio/eTransmitting on:?10/15/2024 07:31 AM EST History and Physical Notes * HPI (History of Present Illness) Category Sub-Category Detail Notes Category Not es JAVA TECH (Problems) Vulvar Lesions/Itching/Pain: Vulvar complaints:: itching, pain, swelling welts Date of onset:: 06/04/[address] starting a cream prescribed by a field captain for her usual vulvar itching (?psoriasis). Cream is Vtama (tapinarof cream 1%) Symptoms reported:: itching, pain Severity of symptoms:: severe Aggravating factors:: driving, sitting, getting up to stand, wearing clothes Alleviating factors:: laying on her bed with nothing on Prior treatments:: none, and hasn't radha led the field captain Examination Category Sub-Category Detail Notes Category Not es Genitourinary - Female ABDOMEN: soft, non-tender, no mass EXTERNAL GENITALS: angry erythema on la vania majora and minora with few excoriations, some scaling present VAGINA: healthy pink mucosa without any lesions CERVIX: downward, normal heather earing, no cervical movement tenderness UTERUS: normal size, mobile, non tender OVARIES: not palpable GENERAL APPEARANCE: alert, oriented, no apparent distress, senior administrative services officer present in room URETHRAL MEATUS: normal ANUS/PERINEUM: angry erythema on pe rineum and perianal region with few excoriations, some scaling present
--- OUTSIDE RECORDS SUMMARY | 2024-10-15 07:31 | XMS_ITS | Clinical Summary ---
Author Organization [facility] Address [address] [place] [address] Care Team Providers Care Sales Attendant Name Role Phone Adrian Orr MD Primary Care Provider [phone] Allergies No known active allergies Medications Medication Sig Dispensed Refills Start Date End Date Status losartan (COZAAR) 25 MG tablet Take 25 mg by mouth daily. Active atenolol (TENORMIN) 100 MG tablet Take 100 mg by mouth daily. Active metFORMIN (GLUCOPHAGE) 1000 MG tablet Take 1,000 mg by mouth 2 (two) times a day with meals. Active empagliflozin (Jardiance) 25 MG tablet Take 25 mg by mouth every morning. Active glipiZIDE (GLUCOTROL XL) 5 MG 24 hr tablet Take 10 mg by mouth every morning with breakfast. Active atorvastatin (LIPITOR) 10 MG tablet Take 10 mg by mouth daily. Active gabapentin enacarbil er (HORIZANT) 300 MG cr tablet Take 600 mg by mouth daily. Active tiZANidine (ZANAFLEX) 2 MG tablet Take 2 mg by mouth 3 times daily (every 8 hours) as needed. 06/22/2020 Active OMEprazole (PriLOSEC) 40 MG capsule Take 40 mg by mouth. Active sertraline (ZOLOFT) 50 MG tablet Take 50 mg by mouth daily. 12/28/2021 Active cyclobenzaprine (FLEXERIL) 10 MG tabletIndications:Le ft shoulder strain, initial encounter,Strain of thoracic back region Take 1 tablet (10 mg total) by mouth 3 times daily (every 8 hours) as needed for muscle spasms. 15 tablet 01/10/2022 Active nystatin (MYCOSTATIN) 895072 UNIT/ML suspensionIndication s:Oral thrush Take 5 mL (500,000 Units total) by mouth 4 (four) times a day. Retain in mouth for as long as possible, then spit out. 140 mL 01/26/2022 Active albuterol (PROAIR RESPICLICK) 108 (90 Base) MCG/ACT inhaler Inhale 1 puff every 4 (four) hours as needed. Active buPROPion (WELLBUTRIN XL) 150 MG 24 hr tablet Take 150 mg by mouth every morning. 02/23/2024 Active fluticasone-salmeter ol (WIXELA INHUB) 500-50 mcg/act inhaler INHALE 1 PUFF INTO THE LUNGS TWICE A DAY FOR 90 DAYS 03/27/2024 Active meloxicam (MOBIC) 15 MG tabletIndications:Ab scess of left thigh Take 1 tablet (15 mg total) by mouth daily. 7 tablet 04/24/2024 Active benzonatate (TESSALON) 100 MG capsuleIndications:A cute cough,COVID-19 Take 2 capsules (200 mg total) by mouth 3 (three) times a day as needed for cough. 20 capsule 09/20/2024 Active Active Problems No known active problems Encounters Date Type Department Care Team Description 09/20/2024 1:30 PM EST Office Visit [facility] [place] [address] [place] [address] Gregorio Lakhani MD Liquori, Angela M, APRN COVID-19 (Primary Dx); Exposure to COVID-19 virus; Acute cough 09/20/2024 Scanned Document [address] [place] [phone] Provider, Generic 09/20/2024 Scanned Document [address] [place] [phone] Provider, Generic from Last 3 Months Social History Tobacco Use Types Packs/Day Years Used Date Smoking Tobacco: Some Days Cigarettes Smokeless Tobacco: Never Tobacco Cessation:Ready to Q uit: Not Asked; Counseling Given: Not Answered Sex and Gender Information Value Date Recorded Sex Assigned at Female 06/23/2024 7:56 AM EDT Gender Identity Female 06/23/2024 7:56 AM EDT Sexual Orientation Not on file Last Filed Vital Signs Vital Sign Reading Time Taken Comments Blood Pressure 129/83 09/20/2024 1:18 PM EST Pulse 80 09/20/2024 1:18 PM EST Temperature 37.2 ??C (99 ??F) 09/20/2024 1:18 PM EST Respiratory Rate 16 04/24/2024 2:46 PM EDT Oxygen Saturation 95% 09/20/2024 1:18 PM EST Inhaled Oxygen Concentration - - Weight 81.6 kg (180 lb) 09/20/2024 1:18 PM EST Height 162.6 cm (5' 4 ) 09/20/2024 1:18 PM EST Body Mass Index 30.9 09/20/2024 1:18 PM EST Plan of Treatment Upcoming Encounters Date Type Department Care Team (Late st Contact Info) Description 11/12/2024 2:45 PM EST Procedure visit [facility] [address] [place] [phone] Payal Canseco PA-C [address] [place] [phone] 11/19/2024 2:45 PM EDT Procedure visit [facility] [phone] Payal Canseco PA-C [address] [place], [place] [phone] Health Maintenance Due Date Last Done Comments Hepatitis C Virus Screening 1965 HIV Screening 1977 DTaP/Tdap/Td Vaccines (1 - Tdap) 1983 Pneumococcal Vaccines 50+ (1 of 2 - PCV) 1983 Pap Smear (Ages 21-65) 1985 Mammogram 2004 Colonoscopy 2009 Zoster (Shingles) Vaccine (1 of 2) 2014 Influenza Vaccine 04/08/2024 08/19/2020 COVID-19 Vaccine ( - season) 2024 06/06/2021, 10/24/2020, 09/27/2020 RSV Vaccine 60 years and older and Patients (1 - Risk 60-74 years 1-dose series) 2024 Hemoglobin A1C Discontinued 07/16/2024, 09/12/2018 Hepatitis B Vaccines Aged Out No long er eligible based on patient's age to complete this topic Procedures Procedure Name Priority Date/Time Associated Diagnosis Comments POCT RAPID COVID-19 AG (FDA EUA) Routine 09/20/2024 1:27 PM EST Exposure to COVID-19 virus from Last 3 Months Results * (ABNORMAL) POCT Rapid COVID-19 Antigen (FDA EUA) (09/20/2024 1:27 PM EST) COVID-19 Rapid Antigen, POC (FDA EUA) Positive(A ) Result Comments: A Positive Result does not rule out bacterial infection or co-infection with other viruses. Clinical correlation advised. A Negative Result in symptomatic patients should be considered presumptive and needs confirmation by PCR. Kit Lot Number [id number] Theology Professor Pass Pass Swab, Nasal Specimen from nose / Unknown 09/20/2024 1:27 PM EST Caterina Bro APRN POINT OF CARE TEST ORDERABLES from Last 3 Months Care Teams Sales Attendant Relationship Specialty Start Date End Date Adrian Orr MD Cardiology [place] [address] PCP - General 08/18/20
--- OUTSIDE RECORDS SUMMARY | 2024-10-15 07:31 | XMS_ITS | Encounter Summary ---
Author Organization [facility] Address [address] [place] [address] Care Team Providers Care Orthophotography Technician Name Role Phone Adrian Orr MD Primary Care Provider [phone] Encounter Details Date Type Department Care Team (Late st Contact Info) Description 08/18/2020 6:36 PM EST Hospital Encounter [facility] [address] [place] [phone] Gregorio Lakhani MD [address] [place] [address] Social History Tobacco Use Types Packs/Day Years [...] Description 11/12/2024 2:45 PM EST Procedure visit [facility] [address] [place] [phone] Payal Canseco PA-C [address] [place], [place] [phone] 11/19/2024 2:45 PM EDT Procedure visit [facility] [address] [place] [phone] Payal Canseco PA-C [address] [place], [place] [phone] documented as of this encounter Procedures Procedure Name Priority Date/Time Associated Diagnosis Comments XR FOOT 3+ VIEWS-RIGHT Routine 08/18/2020 6:42 PM EST Foot pain, right documented in this encounter Results * XR Foot 3+ views-Right (08/18/2020 6:42 PM EST) Anatomical Region Laterality Modality Foot Right Computed Radiogr aphy 08/18/2020 6:43 PM EST Impressions 08/18/2020 6:44 PM EST 1.No acute fracture or dislocation of the right foot. 2. Other findings as discussed. Narrative 08/18/2020 6:44 PM EST CLINICAL: Plantar foot pain post trauma. COMPARISON(S): None. TECHNIQUE: AP, lateral, and oblique radiographs of the right foot were obtained. FINDINGS: No soft tissue abnormality. No acute fracture or dislocation. First metatarsal osteotomy with single threaded screw. Joint spaces well-maintained. Prominent plantar calcaneal spur. Procedure Note Linus Connolly MD - 08/18/2020 CLINICAL: Plantar foot pain post trauma. COMPARISON(S): None. TECHNIQUE: AP, lateral, and oblique radiographs of the right foot wereobtained. FINDINGS: No soft tissue abnormality. No acute fracture or dislocation. First metatarsal osteotomy with single threaded screw. Joint spaces well-maintained. Prominent plantar calcaneal spur. IMPRESSION: 1.No acute fracture or dislocation of the right foot. 2. Other findings as discussed. Devin [facility] NG ORDERABLES documented in this encounter Visit Diagnoses Not on filedocumented in this encounter Care Teams Orthophotography Technician Relationship Specialty Start Date End Date Adrian Orr MD [place] [address] PCP - General 08/18/20 documented as of this encounter
--- OUTSIDE RECORDS SUMMARY | 2024-10-15 07:31 | XMS_ITS ---
Author Name [facility] History of Medication Use Medication Directions Dispensed Refills Start Date End Date Status metFORMINTake (oral)[id number] frequency recordedoralNo set duration recordedNo set duration amount bjvzndtclvghvi315yu 3 active atenolol (TENORMIN) 100 MG tablet Take 100 mg by mouth daily. active pimecrolimusTake (topical)98948307gdnomPz frequency recordedtopicalNo set duration recordedNo set duration amount recordedactive1% 3 active gabapentin enacarbil er (HORIZANT) 300 MG cr tablet Take 600 mg by mouth daily. active glipiZIDETake (oral)60652966owvuiqEa frequency recordedoralNo set duration recordedNo set duration amount pdwcgkvgtffknw8pq 3 active benzonatateTake (oral)99403911rxrakorJl frequency recordedoralNo set duration recordedNo set duration amount mcbabjyflvyhsktfg788nk 4 suspended triamcinolone acetonide (KENALOG-40) 40 MG/ML injection 40 mg 40 mg, Intra-articular, Once PRN Procedure, Starting on Fri07/02/24 at 1445, For 1 dose 4 024 active ofloxacinTake (otic (ear))51411090fgfkpZw frequency recordedotic (ear)No set duration recordedNo set duration amount recordedsuspended0.3% 3 suspended albuterol (PROAIR RESPICLICK) 108 (90 Base) MCG/ACT inhaler Inhale 1 puff every 4 (four) hours as needed. acti ve buPROPion (WELLBUTRIN XL) 150 MG 24 hr tablet Take 150 mg by mouth every morning. 4 active glipiZIDE (GLUCOTROL XL) 5 MG 24 hr tablet Take 10 mg by mouth every morning with breakfast. active clobetasoLTake (topical)43855440ztwfxJc frequency recordedtopicalNo set duration recordedNo set duration amount recordedactive0.05% 4 active vareniclineTake (oral)84183273ytxgivFo frequency recordedoralNo set duration recordedNo set duration amount kpiyqpprnicphokvz1dl 3 suspended omeprazoleTake (oral)08035502mnfsaqm,de layed release (enteric coated)No frequency recordedoralNo set duration recordedNo set duration amount vojuzjvzgvevle99zi 4 active Wixela InhubTake (inhalation)55560084Xofo ter, With Inhalation DeviceNo frequency recordedinhalationNo set duration recordedNo set duration amount txxtpickyczoqn554-24bes/ dose 4 active tiZANidine (ZANAFLEX) 2 MG tablet Take 2 mg by mouth 3 times daily (every 8 hours) as needed. 0 active nystatin (MYCOSTATIN) 428487 UNIT/ML suspension Take 5 mL (500,000 Units total) by mouth 4 (four) times a day. Retain in mouth for as long as possible, then spit out. 2 active amoxicillinTake (oral)47530967upztadfXo frequency recordedoralNo set duration recordedNo set duration amount uvmtqnbdwkkvpqwqu892kx 3 suspended JardianceTake (oral)43732793splalyRe frequency recordedoralNo set duration recordedNo set duration amount gvkjfnxkminvoj89ky 3 active Bactrim DSTakeNo abhilash e recordedNo form recordedNo frequency recordedNo route recordedNo set duration recordedNo set duration amount recordedsuspendedNo dosage strength recordedNo dosage strength units of measure recorded suspended albuterol sulfateTak e (inhalation)38306407LKJ Aerosol with AdapterNo frequency recordedinhalationNo set duration recordedNo set duration amount fgyzezdlpehanh20flk/actu ation 4 active atorvastatinTake (oral)11466639hgxcywHd frequency recordedoralNo set duration recordedNo set duration amount lkyqqygcxpyecp88cx 3 active triazolamTake (oral)22136888yosnluAd frequency recordedoralNo set duration recordedNo set duration amount recordedsuspended0.125mg 3 suspended gabapentinTake (oral )No date recordedcapsuleNo frequency recordedoralNo set duration recordedNo set duration amount gszzggfvxszmeo993wm active atenoloLTake (oral)22541299icudzlYi frequency recordedoralNo set duration recordedNo set duration amount dhxhgadieedbms232zp 4 active buPROPion HCLTake (oral)26230432Iefdlk, Extended Release 24 hrNo frequency recordedoralNo set duration recordedNo set duration amount rccegfavkcqkvr149gj 3 active Problems Problem Status Onset Date Problem Type Date of Resolution Source Pain in right hip active 2023-11-11 [address] [facility] Other asthma active ProblemAct [facility] GERD without esophagitis active ProblemAct [facility] Other specified arthritis, unspecified site active ProblemAct [facility] Localized osteoarthritis of right knee active EncounterDiagnosisAct [facility] Hypertension active ProblemAct [facility] SONE Pain in unspecified hip active 2023-11-14 ProblemAct [facility] Type 2 diabetes mellitus without complications active ProblemAct [facility] Osteoarthritis of both knees active 2022-04-05 ProblemAct [facility]
--- OUTSIDE RECORDS SUMMARY | 2024-10-15 07:31 | XMS_ITS | Encounter Summary ---
Author Organization [facility] Address [address] [place] [address] Care Team Providers Care Pie Dough Roller Name Role Phone Adrian Orr MD Primary Care Provider [phone] Encounter Details Date Type Department Care Team (Late st Contact Info) Description 09/20/2024 Scanned Document [facility] [address] [facility] [address] [place] [phone] Provider, Generic Social History Tobacco Use [...] Description 11/12/2024 2:45 PM EST Procedure visit [facility] [address] [place] [phone] Payal Canseco PA-C [address] [place] [phone] 11/19/2024 2:45 PM EDT Procedure visit [facility] [address] [place] [phone] Payal Canseco PA-C [address] [place] [phone] documented as of this encounter Visit Diagnoses Not on filedocumented in this encounter Care Teams Pie Dough Roller Relationship Specialty Start Date End Date Adrian Orr MD [place] [address] PCP - General 08/18/20 documented as of this encounter
--- OUTSIDE RECORDS SUMMARY | 2024-10-15 07:31 | XMS_ITS ---
Author Organization [facility] Address [address] [place] [address] Care Team Providers Care Lock Setter Name Role Phone CRISTINA LUCERO Primary Care Provider KEENAN Escamilla Unavailable [phone] REASON FOR VISIT Appointment Encounters Encounter Location Date Provider Diagnosis [facility] [address] [place] [address] 09/09/2024 KEENAN BLEDSOE Plan Of Treatment Next Appt Details Provider Name:KEENAN Luong, 10/22/2024 01:30:00 PM, [address], [address], [place], [phone], Progress Notes * NEO BAIRDOB:[birth year] (59 yo F)Acc No.[id number]:09/09/2024 Patient:?NEO BAIRD :1965???Age:59 Y???Sex:Female Address:[address] [place] [address], [address] * true * Date:? Generated for Printi manisha/Remigio/eTransmitting on:?10/15/2024 07:31 AM EST
--- OUTSIDE RECORDS SUMMARY | 2024-10-15 07:31 | XMS_ITS | Clinical Summary ---
Author Organization LL [address] [place] [address] Address [address] [place] [address] Phone Care Team Providers Care Binder Sorter Name Role Phone Cristina Lucero MD Primary Care Provider [phone] Immunizations Name Administration Dates Next Due Pfizer SARS-CoV-2 COVID-19, mRNA, LNP-S, preservative free 06/06/2021,10/24/2020,09/27/2020 Surgical History Surgery Date Site/Laterality Comments CYSTOSCOPY 2011 PROCEDURE: [place] CYSTOURETHROSCOPY; COMMENT: Kidney Stone: guzman CHOLECYSTECTOMY 2007 PROCEDURE: HISTORICAL CHOLECYSTECTOMY TONSILLECTOMY PROCEDURE: HISTORICAL TONSILLECTOMY OTHER SURGICAL HISTORY 1989 PROCEDURE: HISTORICAL D&C FOOT SURGERY 2016 PROCEDURE: HISTORICAL FOOT SURGERY; COMMENT: Bunion Medical History Medical History Date Comments Carpal tunnel syndrome DX:Carpal tunnel syndrome Diabetes (CMS/HCC) DX:Diabetes ( HCC) Hypertension DX:Hypertension Kidney stone DX:Kidney stone Migraine DX:Migraine Circumscribed scleroderma DX:Cir cumscribed scleroderma; COMMENT: Lichen sclerosis Esophageal reflux DX:Esophageal reflux Hyperlipidemia DX:Hyperlipidemi a Family History Medical History Relation Name Comments Breast cancer Neg Hx Colon cancer Neg Hx Relation Name Status Comments Father Mother Social History Tobacco Use Types Packs/Day Years Used Date Smoking Tobacco: Never Smokeless Tobacco: Never Alcohol Use Standard Drinks/Week Comments No 0 (1 standard drink = 0.6 oz pur e alcohol) Sex and Gender Information Value Date Recorded Sex Assigned at Female 07/13/2024 7:50 AM EST Gender Identity Female 07/13/2024 7:50 AM EST Sexual Orientation Straight 07/13/2024 7: 50 AM EST Job Start Date Occupation Industry Not on file Not on file Not on file Obstetrics History Last Filed Vital Signs Vital Sign Reading Time Taken Comments Blood Pressure - - Pulse - - Temperature - - Respiratory Rate - - Oxygen Saturation - - Inhaled Oxygen Concentration - - Weight 85.3 kg (188 lb) 06/20/2023 10:49 AM EDT Height 165.1 cm (5' 5 ) 06/20/2023 10:49 AM EDT Body Mass Index 31.28 06/20/2023 10:49 AM EDT Plan of Treatment Upcoming Encounters Date Type Department Care Team (Late st Contact Info) Description 11/11/2024 4:00 PM EST Office Visit Orthopedic Surgery [facility] [address] [phone] Linnea Alexandra PA [address] [phone] 11/16/2024 4:00 PM EDT Office Visit Orthopedic Surgery [facility] [address] [phone] Linnea Alexandra PA [address] [phone] 06/10/2025 1:00 PM EDT [facility]ointment [facility] [address] [place] [phone] Health Maintenance Due Date Last Done Comments Pneumococcal Vaccine: Pediatrics (0 to 5 Years) and At-Risk Patients (6 to 64 Years) (1 of 2 - PCV) 1970 Diabetes: Annual Foot Exam 1974 Diabetes: Annual Retina Eye Exam 1974 DTaP,Tdap,and Td Vaccines (1 - Tdap) 1983 Cervical Cancer Screening: Pap Smear 1985 Zoster Vaccines (1 of 2) 2014 Colorectal Cancer Screening: Colonoscopy 10/08/2019 Depression Screening 10/08/2019 HIV Screening 10/08/2019 Hepatitis C Screening 10/08/2019 Social Influencers of Health Screening 10/08/2019 Diabetes: Annual Urine Albumin-Creatinine Ratio (uACR) 08/21/2022 COVID-19 Vaccine ( season) 2024 09/30/2023, 06/06/2021, 10/24/2020, Additional history exists Influenza Vaccine (#1) 2024 Diabetes: Blood Sugar Control Test (HGBA1C) 01/13/2025 07/16/2024, 09/12/2018 Diabetes: Annual GFR (Glomerular Filtration Rate) 07/16/2025 07/16/2024, 09/12/2018 Hypertension/CHF/CAD Annual BMP Blood Test 07/16/2025 07/16/2024, 09/12/2018 Breast Cancer Screening 06/11/2026 06/11/20 24, 06/13/2023, 06/14/2022, Additional history exists Cholesterol Screening (Lipid Panel) 07/16/2029 07/16/2024 RSV Immunization Patients 60+ Years Old (1 - 1-dose 75+ series) 2039 HIB Vaccines Aged Out No longer eligi ble based on patient's age to complete this topic HPV Vaccines Aged Out No longer eligi ble based on patient's age to complete this topic Hepatitis A Vaccines Aged Out No long er eligible based on patient's age to complete this topic Hepatitis B Vaccines Aged Out No long er eligible based on patient's age to complete this topic IPV Vaccines Aged Out No longer eligi ble based on patient's age to complete this topic MMR Vaccines Aged Out No longer eligi ble based on patient's age to complete this topic Meningococcal ACWY Vaccine Aged Out N o longer eligible based on patient's age to complete this topic RSV Immunization Patients Under 20 months Aged Out No longer eligible based on patient's age to complete this topic Varicella Vaccines Aged Out No longer eligible based on patient's age to complete this topic Procedures Procedure Name Priority Date/Time Associated Diagnosis Comments LIPID PANEL WITH REFLEX TO DIRECT LDL Routine 07/16/2024 9:29 AM EST Type II or unspecified type diabetes mellitus with renal manifestations, uncontrolled(250.42 ) (CMS/HCC) COMPREHENSIVE METABOLIC PANEL Routine 07/16/2024 9:29 AM EST Type II or unspecified type diabetes mellitus with renal manifestations, uncontrolled(250.42 ) (CMS/HCC) COMPLETE BLOOD COUNT Routine 07/16/2024 9:29 AM EST Type II or unspecified type diabetes mellitus with renal manifestations, uncontrolled(250.42 ) (CMS/HCC) HEMOGLOBIN A1C Routine 07/16/2024 9:29 AM EST Type II or unspecified type diabetes mellitus with renal manifestations, uncontrolled(250.42 ) (CMS/HCC) DAV SCREENING DIGITAL Routine 06/11/2024 4:41 PM EDT Encounter for screening mammogram for malignant neoplasm of breast from Last 3 Months or Most Recently Relevant to Health Maintenance Results * (ABNORMAL) Lipid panel with reflex to direct LDL (07/16/2024 9:29 AM EST) Cholesterol 232(H) 0 - 200 mg/dL LAB CHEMISTRY METHOD 07/16/2024 12:02 PM [facility] Triglycerides 158(H) 0 - 150 mg/dL LAB CHEMISTRY METHOD 07/16/2024 12:02 PM [facility] HDL 66 >=40 mg/dL LAB CHEMISTRY METHOD 07/16/2024 12:02 PM [facility] LDL Calculated 134(H) 0 - 100 mg/dL LAB CHEMISTRY METHOD 07/16/2024 12:02 PM [facility] VLDL Cholesterol Sincere 31.6 mg/dL LAB CHEMISTRY METHOD 07/16/2024 12:02 PM [facility] Non HDL Chol. (LDL+VLDL) 166(H) <145 mg/dL LAB CHEMISTRY METHOD 07/16/2024 12:02 PM [facility] Chol/HDL Ratio 3.5 0.0 - 4.4 LAB CHEMISTRY METHOD 07/16/2024 12:02 PM [facility] Blood Venous blood specimen / Unknown Venipuncture / Unknown 07/16/2024 9:29 AM EST 07/16/2024 11:15 AM EST Cristina Lucero MD LAB BLOOD ORDERABLES [facility] [address] [place] [address], [place] [phone] * (ABNORMAL) Complete blood count (07/16/2024 9:29 AM EST) WBC 12.2(H) 4.8 - 10.8 K/mcL LAB HEMETOLOGY METHOD 07/16/2024 11:31 AM EST [facility] RBC 4.50 3.80 - 4.80 M/mcL LAB HEMETOLOGY METHOD 07/16/2024 11:31 AM [facility] Hemoglobin 13.4 11.5 - 16.0 g/dL LAB HEMETOLOGY METHOD 07/16/2024 11:31 AM [facility] Hematocrit 42.6 35.0 - 47.0 % LAB HEMETOLOGY METHOD 07/16/2024 11:31 AM [facility] MCV 95.7 79.0 - 98.0 FL LAB HEMETOLOGY METHOD 07/16/2024 11:31 AM [facility] MCH 30.1 27.0 - 32.0 pcg LAB HEMETOLOGY METHOD 07/16/2024 11:31 AM [facility] MCHC 31.5(L) 32.0 - 37.0 g/dL LAB HEMETOLOGY METHOD 07/16/2024 11:31 AM [facility] RDW 14.2 11.0 - 15.0 % LAB HEMETOLOGY METHOD 07/16/2024 11:31 AM [facility] Platelets 367 130 - 400 K/mcL LAB HEMETOLOGY METHOD 07/16/2024 11:31 AM [facility] MPV 9.0 7.0 - 11.0 FL LAB HEMETOLOGY METHOD 07/16/2024 11:31 AM EST [facility] NRBC 0.0 <1.0 % LAB HEMETOLOGY METHOD 07/16/2024 11:31 AM EST [facility] NRBC Absolute 0.00 <0.10 K/mcL LAB HEMETOLOGY METHOD 07/16/2024 11:31 AM EST [facility] Blood Venous blood specimen / Unknown Venipuncture / Unknown 07/16/2024 9:29 AM EST 07/16/2024 11:15 AM EST Cristina Lucero MD LAB BLOOD ORDERABLES [facility] [address] [place] [address], * (ABNORMAL) Hemoglobin A1c (07/16/2024 9:29 AM EST) Hemoglobin A1C 7.9(H) <6.5 % LAB CHEMISTRY METHOD 07/16/2024 7:09 PM EST [facility] Mean Bld Glu Estim. 180 mg/dL LAB CHEMISTRY METHOD 07/16/2024 7:09 PM [facility] Blood Venous blood specimen / Unknown Venipuncture / Unknown 07/16/2024 9:29 AM EST 07/16/2024 11:15 AM EST Cristina Lucero MD LAB BLOOD ORDERABLES [facility] [address] [place] [address], [place] [phone] * (ABNORMAL) Comprehensive metabolic panel (07/16/2024 9:29 AM EST) Sodium 141 133 - 145 mmol/L LAB CHEMISTRY METHOD 07/16/2024 12:19 PM EST [facility] Potassium 4.6 3.5 - 5.5 mmol/L LAB CHEMISTRY METHOD 07/16/2024 12:19 PM [facility] Chloride 105 96 - 110 mmol/L LAB CHEMISTRY METHOD 07/16/2024 12:19 PM [facility] CO2 29 21 - 32 mmol/L LAB CHEMISTRY METHOD 07/16/2024 12:19 PM [facility] Anion Gap 7 3 - 11 LAB CHEMISTRY METHOD 07/16/2024 12:19 PM [facility] Glucose 157(H) 70 - 100 mg/dL LAB CHEMISTRY METHOD 07/16/2024 12:19 PM [facility] BUN 19 5 - 25 mg/dL LAB CHEMISTRY METHOD 07/16/2024 12:19 PM [facility] Creatinine 0.89 0.50 - 1.10 mg/dL LAB CHEMISTRY METHOD 07/16/2024 12:19 PM [facility] eGFR 75 >=60 mL/min/1. 73m2 LAB CHEMISTRY METHOD 07/16/2024 12:19 PM [facility] Comment:Calculation based on the??Chronic Kidney Disease Epidemiology Collaboration (CKD-EPI) equation refit??without adjustment for race. BUN/Creatinine Ratio 21.3 LAB CHEMISTRY METHOD 07/16/2024 12:19 PM [facility] Calcium 9.9 8.5 - 10.5 mg/dL LAB CHEMISTRY METHOD 07/16/2024 12:19 PM [facility] AST (SGOT) 4(L) 10 - 42 unit/L LAB CHEMISTRY METHOD 07/16/2024 12:19 PM [facility] Comment:Results verified by repeat testing ALT (SGPT) 13 10 - 60 unit/L LAB CHEMISTRY METHOD 07/16/2024 12:19 PM [facility] Alkaline Phosphatase 94 42 - 121 unit/L LAB CHEMISTRY METHOD 07/16/2024 12:19 PM [facility] Total Protein 6.4 6.0 - 8.0 g/dL LAB CHEMISTRY METHOD 07/16/2024 12:19 PM EST [facility] Albumin 3.3 3.2 - 5.0 g/dL LAB CHEMISTRY METHOD 07/16/2024 12:19 PM EST [facility] Total Bilirubin 0.5 0.0 - 1.4 mg/dL LAB CHEMISTRY METHOD 07/16/2024 12:19 PM EST [facility] Blood Venous blood specimen / Unknown Venipuncture / Unknown 07/16/2024 9:29 AM EST 07/16/2024 11:15 AM EST Cristina Lucero MD LAB BLOOD ORDERABLES [facility] [address] [place] [address], * DAV SCREENING DIGITAL (06/11/2024 4:41 PM EDT) Anatomical Region Laterality Modality Mammography 06/11/2024 12:3 6 PM EDT Narrative 06/11/2024 4:41 PM EDT [facility] Diagnostic Imaging Department [address] [place] [address] Patient: ??NEO BAIRD ?/Age/Sex: 1965 - 58 - F Unit#: ??[id number] ? Location/Status: ??SPDIMAM/REG CLI ? Mnemonic/Ordering Site: ??DIGSC/SPMAM Ordering Physician: ??CRISTINA LUCERO MD Dav Screening Digital - 06/11/24 - 1322 Report Status:Signed EXAM: ??SCREENING MAMMOGRAPHY, BILATERAL HISTORY: ??SCREENING. ??None. COMPARISON: ??06/13/2023, 06/14/2022, 06/08/2021 TECHNIQUE: Synthesized CC and MLO projections of each breast. ??Tomosynthesis of each breast in the CC and MLO projections. ADDITIONAL IMAGING: None Computer-aided detection was employed. ??i CAD profound AI 3-D. TISSUE DENSITY: There are scattered areas of fibroglandular density. (BI-RADS category B) FINDINGS: RIGHT BREAST: No suspicious mass. No suspicious calcification. No distortion. LEFT BREAST: No suspicious mass. No suspicious calcification. No distortion. No suspicious change in a 0.4 cm round low density asymmetry in the medial left breast 10 cm from the nipple. IMPRESSION: No mammographic evidence of malignancy No suspicious interval change A negative mammogram in the presence of a clinically suspicious palpable abnormality does not preclude the possibility of malignancy or alter the indications for biopsy. ASSESSMENT: BI-RADS 2: BENIGN RECOMMENDATION(S): 1: Routine screening mammogram BILATERAL in 1 year. Dictating Physician: ??Abhishek GARCIA BRET MD Electronically Signed by: ??Abhishek GARCIA BRET MD Dic Date/Time: ??06/11/24 1633 Sign date/Time: ??06/11/24 1641 Procedure Note Vince Garcia MD - 07/06/2024 [facility] Diagnostic Imaging Department [address] [place] [id number] Patient: NEO BAIRD/Age/Sex: 1965 - 58 - F Unit#: [id number] Location/Status: SPDIMAM/REG CLI Mnemonic/Ordering Site: [facility] Ordering Physician: CRISTINA LUCERO MD Dav Screening Digital - 06/11/24 - 1322 Report Status:Signed EXAM: SCREENING MAMMOGRAPHY, BILATERAL HISTORY: SCREENING. None. COMPARISON: 06/13/2023, 06/14/2022, 06/08/2021 TECHNIQUE: Synthesized CC and MLO projections of each breast.Tomosynthesis of each breast in the CC and MLO projections. ADDITIONAL IMAGING: None Computer-aided detection was employed. i CAD profound AI 3-D. TISSUE DENSITY: There are scattered areas of fibroglandular density.(BI-RADS category B) FINDINGS: RIGHT BREAST: No suspicious mass. No suspicious calcification. No distortion. LEFT BREAST: No suspicious mass. No suspicious calcification. No distortion. No suspicious change in a 0.4 cm round low density asymmetry in the medialleft breast 10 cm from the nipple. IMPRESSION: No mammographic evidence of malignancy No suspicious interval change A negative mammogram in the presence of a clinically suspicious palpable abnormality does not preclude the possibility of malignancy or alter the indications for biopsy. ASSESSMENT: BI-RADS 2: BENIGN RECOMMENDATION(S): 1: Routine screening mammogram BILATERAL in 1 year. Dictating Physician: Abhishek GARCIA BRET MD Electronically Signed by: Abhishek GARCIA BRET MD Dic Date/Time: 06/11/24 1633 Sign date/Time: 06/11/24 1641 Cristina Lucero MD IMG BI PROCEDURES from Last 3 Months or Most Recently Relevant to Health Maintenance Advance Directives Documents on File Type Date Recorded Patient Pharmacy Benefits Coordinator Expl anation Advance Directives and Livin g Will 08/17/2024 9:04 AM Power of [place] 08/17/2024 9:04 AM Care Teams Binder Sorter Relationship Specialty Start Date End Date Cristina Lucero MD [address] [place] [id number] PCP - General Internal Medicine 07/16/24
[2024-10-15] MEDS: Lidocaine HCl 1 % MPF 5 ML VIAL INFILTRATI ×2 (07:41)
--- NOTE | 2024-10-15 07:41 | PC.NURSE ---
left great toe and nail appear WNL to this RN.
--- NOTE | 2024-10-15 08:32 | ED.LOWEXIN ---
HPI - Extremity Injury (Lower) General Chief Complaint: Extremity Injury, Lower Stated Complaint: Toe Pain L Foot No Injury Time Seen by Provider: 10/15/24 07:19 Source: patient Mode of arrival: ambulatory Limitations: no limitations History of Present Illness ED Provider: Dr. Varinder Oliveira HPI Narrative: 59-year-old female who presents emergency department for evaluation of pain in her left great toe. Patient states she has been having intermittent pain but the pain is gotten worse over the last 2-3 days. She states she was had an ingrown toenail in her left great toe in the past and it has had to be resected in order to help her pain. Patient was not noticed any redness, swelling, drainage of pus from the toenail. Related Data Allergies Allergy/AdvReac Type Severity Reaction Status Date / Time No Known Allergies Allergy Verified 10/15/24 07:16 Review of Systems Review of Systems: Yes all other systems are reviewed and are negative PMFSH Social History Social History Advance Directives: Yes Advance Directives Information Provided: Yes Advance Directives on File: No Do you have a plan to hurt others: No Plan Physical Exam Vital Signs: Vital Signs: Last Vital Signs Temp 98 F 10/15/24 07:12 Pulse 114 H 10/15/24 07:12 Resp 19 10/15/24 07:12 BP 148/82 H 10/15/24 07:12 Pulse Ox 97 10/15/24 07:12 BMI result Body Mass Index 29.5 Vital signs revealed an elevated blood pressure otherwise unremarkable-most likely secondary to her pain Exam: Left great exam: Patient does have significant tenderness palpation over the medial aspect of the left great toe, there is an obvious ingrown toe nail, there is no increased erythema or warmth, she was no tenderness palpation over her joints of her left great toe Medications Administered Discontinued Medications Generic Name Dose Route Start Last Admin Trade Name Freq PRN Reason Stop Dose Admin Lidocaine HCl 5 ml 10/15/24 07:32 10/15/24 07:41 Lidocaine Hcl 1 % Mpf 5 Ml Vial INFILTRATI 10/15/24 07:33 5 ml ONCE STA Administration Lidocaine HCl 5 ml 10/15/24 07:32 10/15/24 07:41 Lidocaine Hcl 1 % Mpf 5 Ml Vial INFILTRATI 10/15/24 07:33 5 ml ONCE ONE Administration Medical Decision Making Medical Decision Making MDM Narrative: 59-year-old female who presents emergency department for evaluation of left great toe pain times 2-3 days with increased pain. Vital signs revealed an elevated blood pressure but this is most likely secondary to her pain. Exam revealed end ingrown medial toenail with significant tenderness palpation over this area Differential diagnosis: ?Includes but is not limited to left great toe infection, ingrown toenail, gout Course: Patient was presentation was consistent with an ingrown toenail to the medial aspect of the left great toe. The toe was anesthetized using digital block with 1% lidocaine x5 cc. The medial aspect of the nail was lifted until the ingrown area was exposed. Using scissors I was able to cut down to the base and pull out the ingrown toenail. There was minimal bleeding. Patient's toe was covered with bacitracin and a gauze dressing. She was given printed and verbal instructions and discharged home. Admission/Observation Consideration of admission/observation: Escalation of care including admission/observation considered (No) Procedures Procedure Narrative Procedure Narrative: Left great toenail partial resection: Ingrown toenail The patient did give me informed verbal consent to proceed with the procedure. Patient was left great toe was prepped with Betadine. The patient's left great toe was anesthetized with 1% lidocaine x5 cc. The medial aspect of the toe was raised to using hemostats. The ingrown area was exposed in using scissors I was able to cut down to the base of the toenail. Using hemostats with gentle pressure was able to remove the nail down to the base. There was minimal bleeding. The resected toenail area was covered with bacitracin and a gauze dressing. Patient tolerated the procedure well Discharge Plan Discharge Clinical Impression: Ingrowing toenail, Pain of left great toe Patient Disposition: Home, Self-Care Instructions: Ingrown Nail (ED) Additional Instructions: Your toenail was going into the skin of the foot which was causing your pain. The inner part of your toenail was removed to relieve the pressure on your toe. This part of the nail will eventually grow back. Apply bacitracin twice a day for 3-4 days. Keep the toenail covered with gauze until the bleeding stops Watch for signs of infection which would include increased redness, increased swelling, drainage of pus, increased pain, red streaks going away from your toe Follow-up with your doctor in 2 days. Please return to the emergency department if your symptoms get worse or if you develop any symptoms that are concerning to you. Print Language: Wallisian
[2024-10-15 08:53] VITALS: BP 148/82; PULSE 114; RESP 19; TEMP 36.6; O2SAT 97
== END 2024-10-15 08:53 | disposition home or self-care (01) ==
PROVIDERS: Emergency Provider Emergency Medicine Emergency Medical Services; PCP Internal Medicine
DX: L60.0 Ingrowing nail (principal)
CPT/HCPCS: 11750; 99282; 99284; J2003